=== PATIENT | female | born 1955 | race Caucasian/White ===

== ENCOUNTER 2016-11-25 09:17 | Observation (INO) | payer BC ==
[2016-11-15 14:34] VITALS: Ht 162.6 cm; Wt 81.3 kg
--- NOTE | 2016-11-15 15:08 | PAT Medication Instructions ---
Service Date Nov 15, 2016. Current Home Medication List Aspirin (Aspirin Ec), 2 TAB PO HS Atenolol (Atenolol), Unknown Dose Atomoxetine Hcl (Strattera), 100 MG PO QAM Cholecalciferol (Vitamin D3), 2 TAB PO QAM Lisinopril (Prinivil), 10 MG PO QAM Melatonin (Melatonin Maximum Strengt), 1 TAB PO HS Multivitamin (Multivitamin), 1 TAB PO QAM Pantoprazole (Protonix), 20 MG PO QAM Simvastatin (Zocor), 20 MG PO QAM Medication Instructions For Your Scheduled Surgery - Check with surgeon for instructions: Aspirin (Aspirin Ec), 2 TAB PO HS - Hold the following medications the morning of surgery: Multivitamin (Multivitamin), 1 TAB PO QAM Lisinopril (Prinivil), 10 MG PO QAM Cholecalciferol (Vitamin D3), 2 TAB PO QAM Atomoxetine Hcl (Strattera), 100 MG PO QAM - Take the following medications the morning of surgery with a sip of water: Simvastatin (Zocor), 20 MG PO QAM Pantoprazole (Protonix), 20 MG PO QAM Atenolol (Atenolol), 1 TAB QAM - Take the following medications as scheduled the night before surgery: Melatonin (Melatonin Maximum Strengt), 1 TAB PO HS If you have any questions please call us at [phone] (Janae Oconnell PA-C) or [phone] or [phone]
[2016-11-15 15:19] LABS: BASO % 0.6 %; BASO ABS # 0.05 K/uL (0-0.2); COMPLETE YES; EOS % 0.9 %; HEMATOCRIT 39.2 % (37-47); IG% 0.2 %; LYMPH % 37.4 %; LYMPH ABS # 3.18 K/uL (1.2-3.4); MEAN CORPUSCULAR HEMOGLOBIN 30.3 pg (25-34); MEAN CORPUSCULAR HGB CONC 32.9 g/dl (32-36); MEAN PLATELET VOLUME 9.6 fL (7.4-10.4); MONO % 7.3 %; NEUT % 53.6 %; PLATELET COUNT 278 K/uL (130-400); RED BLOOD COUNT 4.26 M/uL (4.2-5.4); WHITE BLOOD COUNT 8.51 K/uL (4.8-10.8)
[2016-11-15 15:30] LABS: PARTIAL THROMBOPLASTIN RATIO 1.1; PROTHROMBIN TIME (PATIENT) 10.3 SECONDS (9.0-12.0)
[2016-11-15 15:40] LABS: BUN/CREATININE RATIO 16.1 (10-20); CALCIUM 9.2 mg/dl (8.5-10.1); CREATININE 0.83 mg/dl (0.60-1.20)
[~2016-11-25] VITALS: Ht 162.6 cm; Wt 81.3 kg
[2016-11-25] VITALS (9 sets, daily range): BP systolic 94–119; BP diastolic 57–77; PULSE 65–83; TEMP 36.3–37; O2SAT 92–100
[~2016-11-25 09:17] MED LIST: ASPI81TA28 PO; ATOM100C PO; CHOL20007 PO; CLINDAMYCIN 600 MG/54 ML D5W IV SCH; LACTATED RINGER'S 1000ML 1,000 ML IV SCH; LISI10TA PO; MELATAB2 PO; MULT-506 PO; PRT/20 PO; SIMV20TA2 PO; TNR25
[2016-11-25] MEDS ORDERED: FENTANYL CITRATE INJ 50 MCG/1 ML 2 ML VIAL ONE ×2 (09:59→12:58)
[2016-11-25] MEDS ORDERED: PROPOFOL IV EMULSION 10 MG/ML 20 ML VIAL IV ONE (09:59)
[2016-11-25] MEDS ORDERED: MIDAZOLAM HCL 1 MG/ML 2ML VIAL ONE (09:59)
[2016-11-25] MEDS ORDERED: LIDOCAINE HCL 2% 2 ML VIAL (20MG/ML) ONE (09:59)
[2016-11-25] MEDS ORDERED: ROCURONIUM BROMIDE 10 MG/ML 5 ML VIAL ONE (09:59)
[2016-11-25] MEDS ORDERED: ONDANSETRON INJ 2 MG/ML 2 ML VIAL ONE ×2 (09:59→13:38)
[2016-11-25] MEDS ORDERED: SCOPOLAMINE 1.5 MG TDSY TD ONE (10:27)
[2016-11-25] MEDS ORDERED: PROPOFOL IV EMULSION 10 MG/ML 100 ML VIAL IV ONE (10:50)
[2016-11-25] MEDS ORDERED: ACETAMINOPHEN 1000 MG/100 ML IV IV ONE (10:50)
[2016-11-25] MEDS ORDERED: LIDOCAINE/EPINEPHRINE 1% 20 ML VIAL ONE (11:01)
--- NOTE | 2016-11-25 11:01 | History & Physical Bridge Note ---
H&P Re-Evaluation Bridge Note: I have examined the patient, reviewed the History & Physical and in the interval since the performance of the History & Physical I have noted the following changes of clinical significance: No changes noted
[2016-11-25] MEDS ORDERED: BACITRACIN 50000 UNIT VIAL ONE (11:02)
[2016-11-25] MEDS ORDERED: BUPIVACAINE 0.25% 30 ML VIAL ONE (11:02)
[2016-11-25] MEDS ORDERED: CEFAZOLIN SOD 1 GM VIAL ONE (11:02)
[2016-11-25] MEDS ORDERED: GENTAMICIN SULFATE 40 MG/ML 2 ML VIAL ONE (11:02)
[2016-11-25] MEDS ORDERED: ATROPINE SULFATE 0.1 MG/ML 5ML SYR IV PRN (11:45)
[2016-11-25] MEDS ORDERED: PROMETHAZINE HCL INJ 6.25 MG in SODIUM CHLORIDE 0.9% 50ML 50 ML IV PRN (11:45)
[2016-11-25] MEDS ORDERED: ONDANSETRON INJ 2 MG/ML 2 ML VIAL IV PRN ×2 (11:45→14:15)
[2016-11-25] MEDS ORDERED: METOCLOPRAMIDE HCL INJ 5 MG/ML 2 ML VIAL ONE (12:08)
[2016-11-25] MEDS ORDERED: DiphenhydrAMINE HCL 50 MG/ML VIAL ONE (12:08)
[2016-11-25] MEDS ORDERED: SODIUM CHLORIDE 0.9% INJ 10 ML VIAL ONE (12:35)
[2016-11-25] MEDS ORDERED: KETAMINE HCL INJ 50 MG/ML 10 ML VIAL ONE (12:35)
[2016-11-25] MEDS ORDERED: PHENYLEPHRINE 100MCG/ML 5ML SYR ONE (12:40)
[2016-11-25] MEDS ORDERED: NEOSTIGMINE METHYLSULFATE 5 MG/5 ML SYR ONE (13:33)
[2016-11-25] MEDS ORDERED: GLYCOPYRROLATE INJ 0.2 MG/ML VIAL ONE (13:33)
--- NOTE | 2016-11-25 14:09 | [facility] Post Operative Brief Note ---
Immediate Operative Summary Operative Date November 25, 2016. Pre-Operative Diagnosis Breast Hypertrophy Post-Operative Diagnosis same as pre-operative Procedure(s) Performed Bilateral Breast Reduction Surgeon Dr. Brooke James Energy Conservation Specialist Surgeon(s) Selam Chang PA-C Estimated Blood Loss 25ml Findings both NACs pink and viable at close of case Specimens SPECIMEN: A: Left breast tissue, 456 grams B: Right breast tissue, 470 grams Drains JUSTIN x2 Anesthesia general Complication(s) None Disposition Recovery Room / PACU
[2016-11-25] MEDS ORDERED: MoRPHine SULFATE 2 MG/ML CARP IV PRN ×2 (14:15)
[2016-11-25] MEDS ORDERED: ACETAMINOPHEN 325 MG TAB PO PRN (14:15)
[2016-11-25] MEDS ORDERED: OXYCODONE/ACETAMINOPHEN 5-325 TAB PO PRN (14:15)
[2016-11-25] MEDS ORDERED: DiphenhydrAMINE HCL 50 MG/ML VIAL IV PRN (14:15)
[2016-11-25] MEDS ORDERED: MoRPHine SULFATE 4 MG/ML 1 ML CARP\\VIAL IV PRN (14:15)
[2016-11-25] MEDS ORDERED: PROMETHAZINE HCL INJ 12.5 MG in SODIUM CHLORIDE 0.9% 50ML 50 ML IV PRN (14:15)
[2016-11-25] MEDS ORDERED: OXAZEPAM 10MG CAP PO PRN (14:15)
[2016-11-25] MEDS: FENTANYL CITRATE INJ 50 MCG/1 ML 2 ML VIAL IV PRN ×2 (14:30→14:35)
[2016-11-25] MEDS ORDERED: IV FLUIDS COMPLETED PRN (14:30)
[2016-11-25] MEDS: EpHEDrine SULFATE INJ 50 MG/ML AMP IV PRN ×2 (15:05→15:08)
--- NOTE | 2016-11-25 15:28 | Anesthesiology Progress Note ---
Anesthesia Post Op Note Date & Time November 25, 2016 at 15:28 Vital Signs Pain Intensity: 0 Vital Signs Past 12 Hours Date Time Temp Pulse Resp B/P Pulse Ox O2 Delivery O2 Flow Rate FiO2 11/25/16 15:25 36.4 60 16 95/57 100 Nasal Cannula 2 11/25/16 15:15 66 16 89/53 97 Nasal Cannula 2 11/25/16 15:05 55 16 87/54 97 Nasal Cannula 2 11/25/16 14:55 52 16 88/54 98 Nasal Cannula 2 11/25/16 14:45 36.2 52 16 87/54 96 Nasal Cannula 2 11/25/16 14:35 52 16 94/61 98 Mask 10 11/25/16 14:25 57 16 100/59 100 Mask 10 11/25/16 14:15 36.1 64 16 102/66 100 Mask 10 11/25/16 10:01 36.8 65 18 119/77 98 Room Air Notes Mental Status: alert / awake / arousable, participated in evaluation Pt Amnestic to Procedure: Yes Nausea / Vomiting: adequately controlled Pain: adequately controlled Airway Patency, RR, SpO2: stable & adequate BP & HR: stable & adequate Hydration State: stable & adequate Anesthetic Complications: no major complications apparent
[2016-11-25] MEDS: LACTATED RINGER'S 1000ML 1,000 ML IV SCH (16:18)
--- NOTE | 2016-11-25 16:31 | OPERATIVE REPORT ---
DATE OF OPERATION: 11/25/2016 PREOPERATIVE DIAGNOSIS: Bilateral symptomatic macromastia. POSTOPERATIVE DIAGNOSIS: Same. PROCEDURE: Bilateral reduction mammoplasty. SURGEON: Dr. Brooke James. WELFARE ELIGIBILITY WORKER: Selam Chang PA-C. ANESTHESIA: General. COMPLICATIONS: None. INDICATION FOR THE PROCEDURE: The patient is a 61-year-old female who presented to my office with concerns of back, neck and shoulder pain related to her large breasts. After discussion, she desired to proceed with reduction mammoplasty. BRIEF DESCRIPTION OF THE PROCEDURE: The risks, benefits and alternatives of the procedure were explained to the patient who agreed and signed consent. She was identified and marked in the preoperative holding area. She was brought to the operating room where she was positioned supine and placed under anesthesia without incident. Surgical site was prepped and draped sterilely. A time-out procedure was performed. Markings were reassessed and a 7 cm pedicle was marked. I began with the left side. The breasts were reasonably symmetric prior to beginning the procedure. 1% lidocaine with epinephrine was used to anesthetize the planned incisions. A 38 mm cookie cutter was used to circumscribe the nipple-areolar complex. Previously marked 7 cm pedicle was incised using a 15 blade scalpel and deepithelialized. I began with the medial dissection of the pedicle using electrocautery. Cautery was used to incise through dermis and breast parenchyma down to chest wall, taking care not to undermine the pedicle during dissection. A similar procedure was undertaken on the lateral aspect of the pedicle, taking care not to undermine the pedicle. Lastly, the pedicle was dissected out superiorly using electrocautery. This was carried down to the chest wall. I then began excision of the medial breast tissue followed by lateral aspect of the breast tissue. A 15 blade scalpel was used to make the inframammary fold incision and electrocautery was used to deepen the incision through dermis and breast parenchyma. Dissection was then carried superiorly to the level of the superior incision. Superior incision was then incised using a 15 blade scalpel and again dissected using electrocautery. A similar procedure was undertaken laterally and then around the keyhole portion of the incision. Care was taken to leave some fat on the lateral pectoralis fascia in order to protect the T4 intercostal nerve. Hemostasis was achieved with electrocautery. Specimen was removed in its entirety and passed off for weighing. Additional resection was undertaken until the maximal resection weight was 456 grams and there was a uniform pedicle and flap. Wound was irrigated with normal saline. Hemostasis was achieved with electrocautery. 0.25% Marcaine plain was used to anesthetize the incisions as well as the pectoralis fascia. A 15 Yoruba Barry drain was brought out through a separate stab incision. The nipple-areolar complex was advanced into the keyhole using 2-0 Vicryl deep dermal suture. The T-junction was approximated using 2-0 Vicryl deep dermal suture. The wound was closed first in a lateral to mid breast direction using 2-0 Vicryl deep dermals and then medial to mid breast using 2-0 Vicryl deep dermals. The vertical limb was approximated using 2-0 Vicryl deep dermals. The nipple-areolar complex was also inset using 2-0 Vicryl deep dermal sutures. Next, the superficial dermal layer was closed using 2-0 PDO running Quill suture along the inframammary fold and 3-0 PDS for the vertical limb and nipple-areolar complex incisions. Lastly 3-0 Monocryl running subcuticular suture was placed. A similar procedure was undertaken on the right side with a maximal resection weight of 470 grams. At the end of the case, both nipple-areolar complexes were pink and viable without evidence of vascular compromise and the breasts appeared symmetric. Dermabond was placed around nipple-areolar complex and the inframammary fold, as well as vertical limb incisions were dressed using Dermabond Prineo. Following placement of the Dermabond, a dry dressing and surgical bra were placed. The patient was awakened and transferred to recovery room in satisfactory condition. Selam Chang PA-C was present and scrubbed throughout the entire procedure and was instrumental in providing retraction during dissection of the pedicle as well as assisting in simultaneous wound closure. I attest to the content of the Intraoperative Record and any orders documented therein. Any exceptio ns are noted below.
[2016-11-25] MEDS ORDERED: CLINDAMYCIN 600 MG/54 ML D5W IV SCH (18:00)
[2016-11-25] MEDS: CLINDAMYCIN IV 600 MG in DEXTROSE 5% ADD-VANTAGE 50ML 50 ML IV SCH ×2 (19:16→23:46)
[2016-11-25] MEDS: OXYCODONE/ACETAMINOPHEN 5-325 TAB PO PRN (19:38)
[2016-11-25] MEDS ORDERED: NON-FORMULARY MEDICATION (Melatonin (Melatonin Maximum Strengt) 1 TAB) PO SCH (21:00)
[2016-11-26] MEDS: LACTATED RINGER'S 1000ML 1,000 ML IV SCH (02:30)
[2016-11-26] MEDS: OXYCODONE/ACETAMINOPHEN 5-325 TAB PO PRN ×2 (02:51→08:21)
[2016-11-26 03:53] VITALS: BP 90/58; PULSE 76; TEMP 37.1; O2SAT 91
[2016-11-26] MEDS: CLINDAMYCIN IV 600 MG in DEXTROSE 5% ADD-VANTAGE 50ML 50 ML IV SCH (05:42)
--- NOTE | 2016-11-26 07:57 | Surgery Progress Note ---
Surgery Progress Note Date of Service November 26, 2016. Subjective Post OP Day: 1 + feeling well, No complaints Objective Vital Signs: Date Time Temp Pulse Resp B/P Pulse Ox O2 Delivery O2 Flow Rate FiO2 11/26/16 03:53 37.1 76 16 90/58 91 Room Air 11/25/16 23:54 Room Air 11/25/16 22:50 37.0 69 16 101/66 95 Room Air 11/25/16 19:27 36.3 77 18 105/67 94 Room Air 11/25/16 19:14 36.7 77 16 98/60 95 Room Air 11/25/16 18:40 94/57 11/25/16 18:01 36.4 81 18 96/61 92 Room Air 11/25/16 17:02 36.6 70 18 101/64 97 Room Air 11/25/16 16:15 99 Nasal Cannula 2.0 11/25/16 16:15 Nasal Cannula 2.0 11/25/16 16:00 36.4 83 18 100/59 100 Nasal Cannula 3.0 11/25/16 15:25 36.4 60 16 95/57 100 Nasal Cannula 2 11/25/16 15:15 66 16 89/53 97 Nasal Cannula 2 11/25/16 15:05 55 16 87/54 97 Nasal Cannula 2 11/25/16 14:55 52 16 88/54 98 Nasal Cannula 2 11/25/16 14:45 36.2 52 16 87/54 96 Nasal Cannula 2 11/25/16 14:35 52 16 94/61 98 Mask 10 11/25/16 14:25 57 16 100/59 100 Mask 10 11/25/16 14:15 36.1 64 16 102/66 100 Mask 10 11/25/16 10:01 36.8 65 18 119/77 98 Room Air Physical Exam: JUSTIN drainage (scant) General Appearance: WD/WN, no apparent distress Incision(s): clean, dry, intact, no erythema, findings (nipple pink and perfusing bilaterally ) Laboratory Results: Results Past 24 Hours Test 11/26/16 05:37 Range/Units Assessment & Plan s/p bilateral breast reduction 1. doing well. drains removed. Will d/c patient home this AM and she will follow -up in office tomorrow
--- NOTE | 2016-11-26 08:00 | Discharge Instructions ---
Discharge Instructions Date of Service November 26, 2016. Admission Reason for Admission: Bilateral Symptomatic Macromastia Discharge Discharge Diagnosis / Problem: macromastia Discharge Goals Goal(s): Decrease discomfort Activity Recommendations Activity Limitations: per Instructions/Follow-up section ACTIVITY RECOMMENDATIONS: __Normal activities _x_No bending, lifting or straining __No driving __Driving allowed when you are off pain medications _x_Walking permitted __You should have help at home for ___ days DRESSINGS: __No dressings required _x_Keep dressings dry/in place until first office visit __Remove dressings ___ and leave dressings off __Apply ice ___ days __Remove dressings and reapply garment __Apply antibiotic ointment (Bacitracin, Neosporin, etc) to wounds 3-4 times/ day for 10 days BATHING: _x_Keep dressings dry _x_Sponge bathing permitted __Showering permitted _x_No swimming, hot tubs or soaking in a tub MEDICATIONS: Resume previous medications unless instructed otherwise by your surgeon. _x_Do not use aspirin, Motrin, Advil or Ibuprofen as these may promote bleeding. Please use Tylenol. _x_Prescription(s) provided:pain medication was provided at your last office visit OTHER INSTRUCTIONS: __Record drain output 2-3 times per day SPECIAL CARE INSTRUCTIONS: * It is normal to have a mild fever after surgery. If your temperature is higher than 101.5 degrees F, please call the office at [phone]. * Constipation is a typical side effect of pain medication. An over-the- counter stool softener will help relieve this. * Leaking around surgical drains may occur and should not cause concern. Sometimes these drains become clogged. If this happens, remove the bulb and milk the clot out of the tube, then replace the bulb. * Drainage from wounds after liposuction is normal and should be expected. Garments will become soiled. You should protect furniture and bedding. This drainage should mostly subside within 2-3 days. Leave garments in place unless instructed to remove them. * If you have unusual drainage from a wound or are concerned you have an infection or have any questions or concerns, please call the office at [phone]. FOLLOW UP VISIT: If not already scheduled, please call the office, , when you return home after surgery to schedule an appointment to be seen in __1_ days. . Current Hospital Diet Patient's current hospital diet: Regular Diet Discharge Diet Recommended Diet: Regular Diet Procedures Procedures Performed: Bilateral Breast Reduction Pending Studies Studies pending at discharge: yes List of pending studies: pathology Medical Emergencies . Who to Call and When: Medical Emergencies: If at any time you feel your situation is an emergency, please call 911 immediately. . Non-Emergent Contact Non-Emergency issues call your: Primary Care Provider, Surgeon . "Provider Documentation" section prepared by Selam Chang. . VTE Core Measure Inpt VTE Proph given/why not?: SCD's [place] Drug Monitoring Program Search Results: no issues identified
[2016-11-26 08:06] VITALS: BP 133/69; PULSE 84; TEMP 37.1; O2SAT 93
--- NOTE | 2016-11-26 08:19 | Discharge Summary ---
Discharge Summary Date of Service November 26, 2016. Admission Date/Reason November 25, 2016 at 14:20 Bilateral Symptomatic Macromastia. Discharge Date/Disposition November 26, 2016 Home Diagnosis Principal Diagnosis: macromastia Secondary Diagnoses/Problems: HTN GERD Medication Reconciliation Continued Medications: Atenolol (Atenolol) Unknown Strength Tab Unknown Dose TAKES IN AM Atomoxetine Hcl (Strattera) 100 Mg Cap 100 MG PO QAM, CAP Cholecalciferol (Vitamin D3) 2,000 Unit Tab 2 TAB PO QAM for 90 Days, #180 TAB 3 Refills Lisinopril (Prinivil) 10 Mg Tab 10 MG PO QAM, TAB Melatonin (Melatonin Maximum Strengt) 5 Mg Tab 1 TAB PO HS Multivitamin (Multivitamin) Tab 1 TAB PO QAM, TAB Pantoprazole (Protonix) 20 Mg Tab 20 MG PO QAM, #30 TAB Simvastatin (Zocor) 20 Mg Tab 20 MG PO QAM, TAB Discontinued Medications: Aspirin (Aspirin Ec) 81 Mg Tab 2 TAB PO HS Admission Physical Exam As per Admitting History & Physical. Hospital Course Patient presented to [facility] with history of macromastia. She was taken to the OR and underwent bilateral breast reduction. Two irma drains were placed intraoperatively. On POD#1 the patient was feeling well, had good pain control and tolerating a regular diet. On exam, her incisions were clean, dry, and intact. Her nipples were pink and perfusing bilaterally. Her drains had scant serosanguineous drainage and were removed. She was discharged home with instructions to follow-up in the office in one day. Discharge Instructions Please refer to the electronic Patient Visit Report (Discharge Instructions) for additional information.
[2016-11-26] MEDS ORDERED: MULTIVITAMIN TAB PO SCH ×2 (09:00)
[2016-11-26] MEDS ORDERED: PANTOprazole SOD 40 MG TAB PO SCH (09:00)
[2016-11-26] MEDS ORDERED: LISINOPRIL 10 MG TAB PO SCH (09:00)
[2016-11-26] MEDS ORDERED: SIMVASTATIN 20 MG TAB PO SCH (09:00)
[2016-11-26] MEDS ORDERED: CHOLECALCIFEROL 1000 INTER.UNIT TAB PO SCH (09:00)
--- NOTE | 2016-11-26 10:04 | Anesthesiology Progress Note ---
Anesthesia Post Op Note Date & Time November 26, 2016 at 10:03 Vital Signs Pain Intensity: 7.0 Vital Signs Past 12 Hours Date Time Temp Pulse Resp B/P Pulse Ox O2 Delivery O2 Flow Rate FiO2 11/26/16 08:06 37.1 84 16 133/69 93 Room Air 11/26/16 03:53 37.1 76 16 90/58 91 Room Air 11/25/16 23:54 Room Air 11/25/16 22:50 37.0 69 16 101/66 95 Room Air Notes Mental Status: alert / awake / arousable, participated in evaluation Pt Amnestic to Procedure: Yes Nausea / Vomiting: adequately controlled Pain: adequately controlled Airway Patency, RR, SpO2: stable & adequate BP & HR: stable & adequate Hydration State: stable & adequate Anesthetic Complications: no major complications apparent Patient states that the anti emetic "patch" was working great. No nausea noted.
[2016-11-26 10:30] VITALS: BP 133/69; PULSE 84; TEMP 37.1; O2SAT 93
== END 2016-11-26 11:51 | disposition home or self-care (01) ==
LOC: ENRESERVDT → ENRESERVTM → C.ACU 09:17 → C.MSW 14:20 → EDBEDREQ 15:41
PROVIDERS: ADMIT Plastic Surgery; ATTEND Plastic Surgery
DX: N62 Hypertrophy of breast (principal); E78.00 Pure hypercholesterolemia, unspecified; I10 Essential (primary) hypertension; Z81.8 Family history of other mental and behavioral disorders; Z82.49 Family history of ischemic heart disease and other diseases of the circulatory system; Z79.82 Long term (current) use of aspirin; E66.9 Obesity, unspecified; Z90.89 Acquired absence of other organs; I38 Endocarditis, valve unspecified; K44.9 Diaphragmatic hernia without obstruction or gangrene; I77.1 Stricture of artery; D03.9 Melanoma in situ, unspecified